=== PATIENT | male | born 1985 | race American Indian/Alaskan Native ===

== ENCOUNTER 2021-11-04 12:30 | Emergency (ER) | payer SELFPAY ==
[2021-11-04 12:44] VITALS: BP 121/64
--- NOTE | 2021-11-04 13:14 | XRay Report ---
CHEST 2 VIEWS INDICATION / CLINICAL INFORMATION: Chest Pain. COMPARISON: None available. FINDINGS: SUPPORT DEVICES: None. HEART / MEDIASTINUM: No significant abnormality. LUNGS / PLEURA: No significant pulmonary or pleural abnormality. No pneumothorax. ADDITIONAL FINDINGS: Scoliosis IMPRESSION: 1. No acute findings. Signer Name: Jeancarlos Nelson MD Signed: 11/04/2021 1:09 PM Workstation Name: [id number]
[2021-11-04 13:48] LABS: Basophils % (Auto) 0.6 % (0.0-1.8); Eosinophils # (Auto) 0.2 K/mm3 (0.0-0.4); Hematocrit 41.4 % (35.5-45.6); Hemoglobin 13.6 gm/dl (11.8-15.2); Lymphocytes # (Auto) 1.5 K/mm3 (1.2-5.4); Lymphocytes % (Auto) 19.1 % (13.4-35.0); Mean Corpuscular HGB Conc 33 % (32-34); Mean Corpuscular Volume 95 fl (84-94); Monocytes # (Auto) 0.6 K/mm3 (0.0-0.8); Monocytes % (Auto) 8.1 % (0.0-7.3); Platelet Count 221 K/mm3 (140-440); Red Blood Count 4.37 M/mm3 (3.65-5.03); Red Cell Distribution Width 12.5 % (13.2-15.2)
[2021-11-04 14:07] LABS: Alanine Aminotransferase 17 units/L (7-56); Albumin 4.2 g/dL (3.9-5); BUN/Creatinine Ratio 9; Blood Urea Nitrogen 9 mg/dL (9-20); Hemolysis Index 11
--- NOTE | 2021-11-05 10:21 | Electrocardiograph Report ---
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
== END 2021-11-04 21:00 | disposition left against medical advice (07) ==
LOC: ED 12:30
DX: R07.9 Chest pain, unspecified (principal); Z53.21 Procedure and treatment not carried out due to patient leaving prior to being seen by health care provider
CPT/HCPCS: 36415; 71046; 80053; 84484; 85025; 93005

== ENCOUNTER 2021-11-10 12:35 | Emergency (ER) | payer OTHER ==
[2021-11-10] MEDS ORDERED: FAMOTIDINE 20 MG TAB PO ONE (15:14)
[2021-11-10] MEDS ORDERED: ONDANSETRON 4 MG ODT TAB PO ONE (15:14)
[2021-11-10] MEDS ORDERED: ASPIRIN 81 MG TAB CHEW PO ONE (15:14)
--- NOTE | 2021-11-10 15:47 | XRay Report ---
XR chest 1V ap INDICATION / CLINICAL INFORMATION: chest pain. COMPARISON: 11/04/2021 FINDINGS: SUPPORT DEVICES: None. HEART /PULMONARY VASCULATURE: No significant abnormality. LUNGS / PLEURA: No significant pulmonary or pleural abnormality. No pneumothorax. ADDITIONAL FINDINGS: Right convex scoliotic curvature. No acute osseous findings. IMPRESSION: 1. No acute findings. Signer Name: Ricky Barcenas MD Signed: 11/10/2021 3:43 PM Workstation Name: [id number]
[2021-11-10 15:55] LABS: Bilirubin,Urine NEG (Negative); Blood,Urine SM (Negative); Color,Urine Yellow (Yellow); Protein,Urine <15 mg/dL mg/dL (Negative); Urobilinogen,Urine < 2.0 mg/dL (<2.0)
[2021-11-10 15:57] LABS: Mucus,Urine FEW /HPF; WBC,Urine < 1.0 /HPF (0.0-6.0)
[2021-11-10 16:38] VITALS: BP 107/65
[2021-11-10 17:08] LABS: Basophils % (Auto) 0.6 % (0.0-1.8); Eosinophils # (Auto) 0.2 K/mm3 (0.0-0.4); Eosinophils % (Auto) 2.4 % (0.0-4.3); Hematocrit 43.6 % (35.5-45.6); Hemoglobin 14.4 gm/dl (11.8-15.2); Lymphocytes # (Auto) 1.6 K/mm3 (1.2-5.4); Mean Corpuscular HGB Conc 33 % (32-34); Mean Corpuscular Volume 94 fl (84-94); Monocytes # (Auto) 0.6 K/mm3 (0.0-0.8); Monocytes % (Auto) 7.4 % (0.0-7.3); Platelet Count 224 K/mm3 (140-440); Red Blood Count 4.64 M/mm3 (3.65-5.03); Red Cell Distribution Width 12.1 % (13.2-15.2)
[2021-11-10 17:59] LABS: Alanine Aminotransferase 21 units/L (7-56); Albumin 4.5 g/dL (3.9-5); BUN/Creatinine Ratio 13; Blood Urea Nitrogen 13 mg/dL (9-20); Calcium 9.9 mg/dL (8.4-10.2); Hemolysis Index 8
--- NOTE | 2021-11-10 20:43 | Emergency Department Report ---
ED Abdominal Pain HPI - General Stated Complaint: CHEST PAIN - History of Present Illness Initial Comments: Patient is a 36-year-old male with no past medical history presents to the ED with complaint of acute onset back epigastric pain with nausea and diffuse chest pain for the last 2 weeks. Patient states that the pain was initially intermittent in the chest and epigastric area but has since become more constant especially in the last 2 days. Patient states that he decided to take ibuprofen and Tylenol at home with no relief. Patient states that any movement or any phy sical activity also makes the pain in his chest but worse. Patient denies dizziness, syncope, vomiting, diarrhea, dysuria, urinary frequency and urgency, heavy lifting, fall, traumatic injury, headache, diaphoresis, numbness and tingling or weakness of upper and lower extremities bilaterally, neck pain, dysphagia or dysphonia, fever and chills and cough. MD Complaint: abdominal pain (epigastric), other (substernal chest pain) -: week(s) (2) Location: epigastric Radiation: epigastric Migration to: epigastric Severity: severe Severity scale (0 -10): 7 Quality: sharp Consistency: constant Improves With: nothing Worsens With: nothing Associated Symptoms: denies other symptoms, nausea. denies: vomiting, diarrhea, fever, chills, constipation, hematemesis, hematochezia, melena, hematuria, anore lashon - Related Data Previous Rx's Medication Instructions Recorded Last Taken Type Famotidine [Pepcid] 20 mg PO BID #60 tablet 11/10/21 Unknown Rx Griseofulvin, Microsize 500 mg PO DAILY #30 tab 11/10/21 Unknown Rx [Griseofulvin] Naproxen 500 mg PO Q12H PRN #30 tab 11/10/21 Unknown Rx Omeprazole 40 mg PO DAILY #40 cap 11/10/21 Unknown Rx Ondansetron [Zofran Odt] 4 mg PO Q8HR PRN #15 tab.rapdis 11/10/21 Unknown Rx Allergies Allergy/AdvReac Type Severity Reaction Status Date / Time No Known Allergies Allergy Verified 11/04/21 12:45 ED Review of Systems ROS: Stated complaint: CHEST PAIN Other details as noted in HPI Constitutional: denies: chills, fever Eyes: denies: eye pain, eye discharge, vision change ENT: denies: ear pain, throat pain Respiratory: denies: cough, shortness of breath, wheezing Cardiovascular: chest pain. denies: palpitations Endocrine: no symptoms reported Gastrointestinal: abdominal pain, nausea. denies: diarrhea Genitourinary: denies: urgency, dysuria Musculoskeletal: denies: back pain, joint swelling, arthralgia Skin: denies: rash, lesions Neurological: denies: headache, weakness, paresthesias Psychiatric: denies: anxiety, depression Hematological/Lymphatic: denies: easy bleeding, easy bruising ED Past Medical Hx - Medications Home Medications: Home Medications Medication Instructions Recorded Confirmed Last Taken Type Famotidine [Pepcid] 20 mg PO BID #60 tablet 11/10/21 Unknown Rx Griseofulvin, Microsize 500 mg PO DAILY #30 tab 11/10/21 Unknown Rx [Griseofulvin] Naproxen 500 mg PO Q12H PRN #30 tab 11/10/21 Unknown Rx Omeprazole 40 mg PO DAILY #40 cap 11/10/21 Unknown Rx Ondansetron [Zofran Odt] 4 mg PO Q8HR PRN #15 tab.rapdis 11/10/21 Unknown Rx ED Physical Exam - General General appearance: alert, in no apparent distress - Head Head exam: Present: atraumatic, normocephalic, normal inspection - Eye Eye exam: Present: normal appearance, PERRL, EOMI Pupils: Present: normal accommodation - ENT ENT exam: Present: normal exam, normal orophraynx, mucous membranes moist, TM's normal bilaterally, normal external ear exam - Neck Neck exam: Present: normal inspection, full ROM - Respiratory Respiratory exam: Present: normal lung sounds bilaterally, chest wall tenderness (palpable reproducible chest wall tenderness). Absent: respiratory distress, wheezes, rales, rhonchi, stridor, accessory muscle use - Cardiovascular Cardiovascular Exam: Present: regular rate, normal rhythm. Absent: systolic murmur, diastolic murmur, rubs, gallop - GI/Abdominal GI/Abdominal exam: Present: soft, normal bowel sounds. Absent: tenderness, guarding, rebound, hyperactive bowel sounds, hypoactive bowel sounds, organomegaly - Extremities Exam Extremities exam: Present: normal inspection, full ROM, normal capillary refill - Back Exam Back exam: Present: normal inspection, full ROM. Absent: tenderness, CVA tenderness (R), CVA tenderness (L), muscle spasm, paraspinal tenderness, vertebral tenderness - Neurological Exam Neurological exam: Present: alert, oriented X3, CN II-XII intact, normal gait, reflexes normal - Psychiatric Psychiatric exam: Present: normal affect, normal mood - Skin Skin exam: Present: warm, dry, intact, normal color, rash (Dry scaly rashes in the pubic area) ED Course Vital Signs 11/10/21 16:37 Pulse Rate 85 Respiratory 17 Rate Blood Pressure 107/65 [Left] O2 Sat by Pulse 99 Oximetry ED Medical Decision Making - Lab Data Result diagrams: 11/10/21 16:36 11/10/21 16:36 - Radiology Data Radiology results: report reviewed, [place] [address] XRay Report Signed Patient: SUNG BERRY MR#: [id number] : 1985 Acct:[id number] Age/Sex: 36 / M ADM Date: 11/10/21 Loc: ED Attending Dr: Ordering Physician: SHANNA GRANGER Date of Service: 11/10/21 Procedure(s): XR chest 1V ap Accession Number(s): [id number] cc: SHANNA GRANGER Fluoro Time In Minutes: XR chest 1V ap INDICATION / CLINICAL INFORMATION: chest pain. COMPARISON: 11/04/2021 FINDINGS: SUPPORT DEVICES: None. HEART /PULMONARY VASCULATURE: No significant abnormality. LUNGS / PLEURA: No significant pulmonary or pleural abnormality. No pneumothorax. ADDITIONAL FINDINGS: Right convex scoliotic curvature. No acute osseous findings. IMPRESSION: 1. No acute findings. Signer Name: Kervin Flowers MD Signed: 11/10/2021 3:43 PM Workstation Name: [id number] Transcribed By: JS Dictated By: KERVIN FLOWERS MD Electronically Authenticated By: KERVIN FLOWERS MD Signed Date/Time: 11/10/211542 DD/ 41 TD/TT: - Medical Decision Making This is a 36-year-old male with no past medical history presents to the ED with complaint of acute onset back epigastric pain with nausea and diffuse chest pain for the last 2 weeks. Patient states that the pain was initially intermittent in the chest and epigastric area but has since become more constant especially in the last 2 days. Patient states that he decided to take ibuprofen and Tylenol at home with no relief. Patient states that any movement or any physical activity also makes the pain in his chest but worse. In the ED, patient is alert and oriented x3 and is not in any distress. Chest x-ray showed no acute cardiopulmonary abnormalities or pneumonitis. All lab test results were reviewed and are all nonactionable. Patient's heart score is 0, and patient is PERC negative per Wells criteria. Patient symptoms are likely musculoskeletal, and his abdominal complaints are likely due to GERD complications. Patient was discharged home on medications and advised to follow-up with his primary care physician in 5 to 7 days for reevaluation or return to the ED immediately if symptoms get worse. - Differential Diagnosis ACS; GERD; costochondritis; dehydration; pneumonia; Critical care attestation.: If time is entered above; I have spent that time in minutes in the direct care of this critically ill patient, excluding procedure time. ED Disposition Clinical Impression: Acute costochondritis, Anterior chest wall pain, Tinea corporis GERD (gastroesophageal reflux disease) Qualifiers: Esophagitis presence: esophagitis presence not specified Qualified Code(s): K21.9 - Gastro-esophageal reflux disease without esophagitis Disposition: 01 HOME / SELF CARE / HOMELESS Is pt being admited?: No Does the pt Need Aspirin: No Condition: Stable Instructions: Costochondritis, [id number], Nonspecific Chest Pain, Adult, [id number], Chest Wall Pain, [id number], Gastroesophageal Reflux Disease, Adult, [id number] Additional Instructions: All lab test results were reviewed and are all nonactionable. Chest x-ray showed no acute cardiopulmonary abnormalities or pneumonitis. The chest pain complaints are likely due to costochondritis which is muscle strain or inflammation of the chest wall muscles. The epigastric pain is likely due to GERD complications. Therefore take medication with food, drink plenty of fluids and follow-up with your primary care physician in 7 to 10 days for reevaluation. Return to the ED immediately if symptoms get worse. Prescriptions: Griseofulvin, Microsize [Griseofulvin] 500 mg PO DAILY #30 tab Naproxen 500 mg PO Q12H PRN #30 tab PRN Reason: Pain , Severe (7-10) Omeprazole 40 mg PO DAILY #40 cap Famotidine [Pepcid] 20 mg PO BID #60 tablet Ondansetron [Zofran Odt] 4 mg PO Q8HR PRN #15 tab.rapdis PRN Reason: Nausea Referrals: [facility] [Provider Group] - 3-5 Days Forms: Work/School Release Form(ED) Time of Disposition: 20:51 Print Language: UKRAINIAN
--- NOTE | 2021-11-12 18:55 | Electrocardiograph Report ---
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
--- NOTE | 2021-11-12 18:59 | Electrocardiograph Report ---
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
== END 2021-11-10 22:15 | disposition home or self-care (01) ==
LOC: ED 12:35
DX: M94.0 Chondrocostal junction syndrome [Tietze] (principal); R07.9 Chest pain, unspecified; B35.4 Tinea corporis; K21.9 Gastro-esophageal reflux disease without esophagitis
CPT/HCPCS: 36415; 71045; 80053; 81001; 83690; 84484; 85025; 93005; 99284; J3490; Q0162